=== PATIENT | female | born 1980 | race African-American/Black ===

== ENCOUNTER 2017-12-01 00:49 | Emergency (ER) | payer SELFPAY ==
[~2017-12-01] VITALS: Ht 167.6 cm; Wt 72.6 kg
[~2017-12-01 00:49] MED LIST: ALBUTEROL0.63 MG/1 INH; SINGULAIR10 M1 PO
[2017-12-01 01:13] VITALS: BP 120/84
== END 2017-12-01 02:00 | disposition admitted as inpatient to this hospital (09) ==
LOC: ERH 00:49
DX: R00.0 Tachycardia, unspecified (principal)
CPT/HCPCS: 93005; 93010; 99281